=== PATIENT | female | born 1990 | race Two or more races ===

== ENCOUNTER 2020-07-13 23:27 | Emergency (ER) | payer OTHER ==
[2020-07-13 23:36] VITALS: BP 130/77; PULSE 87; TEMP 98.6; BMI 32.9
[2020-07-13] MEDS ORDERED: ACETAMINOPHEN 500 MG TABLET (FP) PO ONE (23:50)
[2020-07-13] MEDS ORDERED: ACETAMINOPHEN 325 MG TABLET (FP) ONE (23:55)
== END 2020-07-14 02:16 | disposition home or self-care (01) ==
LOC: JER 23:27
DX: R51.9 Headache, unspecified (principal); Z3A.32 32 weeks gestation of pregnancy
CPT/HCPCS: 71045-TC-FY; 99284-25; C9803; U0003

== ENCOUNTER 2020-07-21 02:05 | Emergency (ER) | payer OTHER ==
[2020-07-21 02:44] VITALS: BMI 32.9
[2020-07-21] MEDS ORDERED: ACETAMINOPHEN 325 MG TABLET (FP) PO ONE (03:18)
[2020-07-21] MEDS ORDERED: ACETAMINOPHEN 325 MG TABLET (FP) ONE (03:24)
[2020-07-21 04:41] LABS: BASO % 0.4 % (0-2.0); EOS % 1.8 % (0-4.5); HEMOGLOBIN 11.9 GM/dL (10.7-15.3); LYMPH % 15.5 % (8-40); MCH 31.3 pg (25.7-33.7); MEAN CELL VOLUME 91.8 fl (80-96); MEAN PLT VOLUME 7.8 fl (7.5-11.1); MONO % 10.1 % (3.8-10.2); NEUT % 72.2 % (42.8-82.8); PLATELET COUNT 229 K/MM3 (134-434); RBC 3.81 M/mm3 (3.60-5.2); RDW 14.2 % (11.6-15.6); WHITE BLOOD COUNT 9.2 K/mm3 (4.0-10.0)
[2020-07-21 05:01] LABS: POTASSIUM 4.4 mmol/L (3.5-5.1)
[2020-07-21 05:03] LABS: ALBUMIN 2.5 g/dl (3.4-5.0); BLOOD UREA NITROGEN 6.4 mg/dL (7-18); CALCIUM 8.5 mg/dL (8.5-10.1)
[2020-07-21 05:07] LABS: CREATININE 0.5 mg/dL (0.55-1.3)
[2020-07-21 05:08] LABS: BILIRUBIN,TOTAL 0.3 mg/dL (0.2-1)
[2020-07-21 10:51] VITALS: BP 133/83; PULSE 83; TEMP 98.5
[2020-07-21 11:21] LABS: EPI CELLS 29 /uL (0-25.1); HYALINE CASTS 1 /uL (0-3.1); URINE APPEARANCE CLEAR; URINE BACTERIA 1198 /uL (0-1359); URINE BILIRUBIN NEGATIVE (NEGATIVE); URINE COLOR YELLOW; URINE GLUCOSE (UA) NEGATIVE (NEGATIVE); URINE KETONE NEGATIVE (NEGATIVE); URINE LEUK ESTERASE TRACE (NEGATIVE); URINE NITRITE NEGATIVE (NEGATIVE); URINE PROTEIN NEGATIVE (NEGATIVE); URINE RBC 12 /uL (0-23.9); URINE UROBILINOGEN 0.2 mg/dL (0.2-1.0); URINE WBC 27 /uL (0-25.8)
== END 2020-07-21 12:15 | disposition home or self-care (01) ==
LOC: JER 02:05
DX: O12.03 Gestational edema, third trimester (principal); R05 Cough; J34.89 Other specified disorders of nose and nasal sinuses; Z3A.34 34 weeks gestation of pregnancy
CPT/HCPCS: 36415; 80053; 81003; 85025; 93971-TC; 99284-25

== ENCOUNTER 2020-08-08 16:05 | Inpatient (IN) | payer OTHER ==
[2020-08-08] MEDS ORDERED: ELECTROLYTE-148 SOLN 1,000 ML IV SCH ×2 (17:00→18:00)
[2020-08-08 20:10] LABS: RETICULOCYTES 2.45 % (0.5-1.5)
[2020-08-08 20:33] LABS: URIC ACID 5.4 mg/dL (2.6-7.2)
[2020-08-08 23:56] LABS: BASO % 0.4 % (0-2.0); EOS % 1.6 % (0-4.5); HEMATOCRIT 37.9 % (32.4-45.2); HEMOGLOBIN 12.9 GM/dL (10.7-15.3); LYMPH % 32.6 % (8-40); MCH 31.3 pg (25.7-33.7); MCHC 34.1 g/dl (32.0-36.0); MEAN CELL VOLUME 91.9 fl (80-96); MEAN PLT VOLUME 8.1 fl (7.5-11.1); MONO % 10.5 % (3.8-10.2); NEUT % 54.9 % (42.8-82.8); PLATELET COUNT 256 K/MM3 (134-434); RBC 4.12 M/mm3 (3.60-5.2); RDW 15.2 % (11.6-15.6); WHITE BLOOD COUNT 8.4 K/mm3 (4.0-10.0)
[2020-08-09 00:15] LABS: POTASSIUM 4.3 mmol/L (3.5-5.1)
[2020-08-09 00:16] LABS: CALCIUM 7.9 mg/dL (8.5-10.1)
[2020-08-09 00:17] LABS: BLOOD UREA NITROGEN 9.9 mg/dL (7-18)
[2020-08-09 00:20] LABS: CREATININE 0.6 mg/dL (0.55-1.3)
[2020-08-09 01:14] LABS: HIV INTERPRETATION NEGATIVE (NEGATIVE)
[2020-08-09 01:28] VITALS: BMI 36.1
[2020-08-09 01:45] LABS: INR 0.85 (0.83-1.09); PROTHROMBIN TIME (PATIENT) 10.5 SEC (9.7-13.0)
[2020-08-09 01:48] LABS: ACTIVATED PTT 26.1 SECONDS (25.2-36.5)
[2020-08-09] MEDS ORDERED: MAGNESIUM 4GM/H20 - 4 GM/100 ML IVPB IVPB ONE (02:32)
[2020-08-09] MEDS ORDERED: MAGNESIUM SULFATE 20GM/500ML - 20 GM/500 ML INFUS.BAG ONE ×2 (02:33→17:42)
[2020-08-09] MEDS ORDERED: MAGNESIUM 4GM/H20 - 4 GM/100 ML IVPB IVPB SCH (02:40)
[2020-08-09 08:57] LABS: BASO % 0.6 % (0-2.0); EOS % 1.1 % (0-4.5); HEMATOCRIT 39.1 % (32.4-45.2); HEMOGLOBIN 13.3 GM/dL (10.7-15.3); LYMPH % 28.1 % (8-40); MCH 31.5 pg (25.7-33.7); MCHC 33.9 g/dl (32.0-36.0); MEAN CELL VOLUME 92.7 fl (80-96); MEAN PLT VOLUME 8.1 fl (7.5-11.1); MONO % 9.6 % (3.8-10.2); NEUT % 60.6 % (42.8-82.8); PLATELET COUNT 254 K/MM3 (134-434); RBC 4.22 M/mm3 (3.60-5.2); RDW 15.2 % (11.6-15.6); WHITE BLOOD COUNT 7.4 K/mm3 (4.0-10.0)
[2020-08-09 09:07] LABS: INR 0.86 (0.83-1.09); PROTHROMBIN TIME (PATIENT) 10.5 SEC (9.7-13.0)
[2020-08-09] MEDS ORDERED: IBUPROFEN 600 MG TABLET (FP) PO PRN (09:56)
[2020-08-09] MEDS ORDERED: ONDANSETRON 4 MG/2 ML VIAL IVPUSH PRN (09:56)
[2020-08-09] MEDS ORDERED: OXYTOCIN 20 UNITS in 0.9% NS 20 UNIT/1,000 ML INFUS.BAG IV ONE ×2 (09:58→17:43)
[2020-08-09] MEDS ORDERED: CEFAZOLIN 2 GM/D5W 2 GM/50 ML ML IVPB ONE (09:58)
[2020-08-09] MEDS ORDERED: morphine SULFATE/Preservative Free 0.5 MG/ML (1cc Syringe) ONE (09:59)
[2020-08-09] MEDS ORDERED: PHENYLEPHRINE HCL 10 MG/1 ML SINGLE DOSE VIAL ONE (10:00)
[2020-08-09] MEDS ORDERED: CITRIC ACID/SODIUM CITRATE 30 ML UNIT-DOSE CUP PO ONE (10:00)
[2020-08-09] MEDS ORDERED: KETOROLAC TROMETHAMINE 30 MG/1 ML VIAL ONE (10:26)
[2020-08-09] MEDS ORDERED: OXYTOCIN 10 UNITS/ML VIAL ONE (10:26)
[2020-08-09] MEDS ORDERED: diphenhydrAMINE HCL 25 MG CAPSULE (FP) PO PRN (11:11)
[2020-08-09] MEDS ORDERED: BENZOCAINE 28 GM HEMORRHOIDAL OINTMENT PR PRN (11:11)
[2020-08-09] MEDS ORDERED: BENZOCAINE 20% 57 GM BOTTLE TP PRN (11:11)
[2020-08-09] MEDS ORDERED: WITCH HAZEL 50% (TUCKS) 40 PAD/JAR PAD TP PRN (11:11)
[2020-08-09] MEDS ORDERED: METHYLERGONOVINE MALEATE 0.2 MG/1 ML AMP IM PRN (11:11)
[2020-08-09] MEDS ORDERED: IBUPROFEN 800 MG/8 ML IJ IVPB PRN (11:11)
[2020-08-09] MEDS ORDERED: DEXTROSE 5%-LACTATED RINGERS 1,000 ML IV SCH (11:15)
[2020-08-09] MEDS ORDERED: OXYTOCIN 20 UNITS in 0.9% NS 20 UNIT/1,000 ML INFUS.BAG IV SCH (11:15)
[2020-08-09] MEDS ORDERED: MAGNESIUM SULFATE 20GM/500ML - 20 GM/500 ML INFUS.BAG IVPB SCH (11:45)
[2020-08-09 11:56] LABS: CORD BASE EXCESS -4.9 mmol/L (0-2); CORD HCO3 22.8 mmHg (20-29); CORD PCO2 51.5 mmHg (30-78); CORD pH 7.264 (7.14-7.44)
[2020-08-09 11:59] LABS: CORD HCO3 27.1 mmHg (20-29); CORD PCO2 68.6 mmHg (30-78); CORD pH 7.215 (7.14-7.44)
[2020-08-09] MEDS ORDERED: LABETALOL HCL 200 MG TABLET (FP) ONE ×2 (17:09→21:49)
[2020-08-09] MEDS ORDERED: LABETALOL HCL 200 MG TABLET (FP) PO ONE ×2 (17:30→17:45)
[2020-08-09] MEDS ORDERED: CEFAZOLIN 1 GM/D5W 50 ML IVPB SCH (18:00)
[2020-08-09] MEDS: LABETALOL HCL 200 MG TABLET (FP) PO SCH (21:52)
[2020-08-09] MEDS ORDERED: ACETAMINOPHEN 1000 MG/100 ML VIAL (NON FORMULARY) IVPB ONE (22:00)
[2020-08-09] MEDS ORDERED: ACETAMINOPHEN INJECTION 100 ML IVPB ONE (22:05)
[2020-08-10] MEDS ORDERED: OXYTOCIN 20 UNITS in 0.9% NS 20 UNIT/1,000 ML INFUS.BAG IV ONE (03:29)
[2020-08-10] MEDS: ELECTROLYTE-148 SOLN 500 ML IV SCH ×2 (04:50→04:51)
[2020-08-10] MEDS: ELECTROLYTE-148 SOLN 1,000 ML IV SCH (04:51)
[2020-08-10] MEDS: LABETALOL HCL 200 MG TABLET (FP) PO SCH ×3 (05:52→21:29)
[2020-08-10] MEDS: ACETAMINOPHEN 325 MG TABLET (FP) PO PRN ×3 (06:46→17:36)
[2020-08-10] MEDS: SIMETHICONE 80 MG TAB.CHEW (FP) PO PRN ×4 (06:47→21:29)
[2020-08-10] MEDS: oxyCODONE HCL 5 MG TABLET PO PRN ×3 (06:47→21:28)
[2020-08-10 08:28] LABS: BASO % 0.4 % (0-2.0); EOS % 0.5 % (0-4.5); HEMATOCRIT 37.6 % (32.4-45.2); HEMOGLOBIN 12.6 GM/dL (10.7-15.3); LYMPH % 15.9 % (8-40); MCH 31.5 pg (25.7-33.7); MCHC 33.6 g/dl (32.0-36.0); MEAN CELL VOLUME 93.6 fl (80-96); MEAN PLT VOLUME 8.1 fl (7.5-11.1); MONO % 8.5 % (3.8-10.2); NEUT % 74.7 % (42.8-82.8); PLATELET COUNT 229 K/MM3 (134-434); RBC 4.01 M/mm3 (3.60-5.2); RDW 15.3 % (11.6-15.6); WHITE BLOOD COUNT 9.6 K/mm3 (4.0-10.0)
[2020-08-10] MEDS: IBUPROFEN 600 MG TABLET (FP) PO PRN ×2 (10:47→17:36)
[2020-08-10] MEDS ORDERED: BISACODYL 10 MG SUPP.RECT PR PRN (11:11)
[2020-08-11] MEDS ORDERED: LABETALOL HCL 100 MG TABLET (FP) ONE (06:22)
[2020-08-11] MEDS: LABETALOL HCL 200 MG TABLET (FP) PO SCH ×3 (06:24→22:09)
[2020-08-11] MEDS: oxyCODONE HCL 5 MG TABLET PO PRN (06:29)
[2020-08-11] MEDS: SIMETHICONE 80 MG TAB.CHEW (FP) PO PRN ×2 (06:30→17:25)
[2020-08-11] MEDS: ACETAMINOPHEN 325 MG TABLET (FP) PO PRN ×2 (08:21→17:25)
[2020-08-11] MEDS: IBUPROFEN 600 MG TABLET (FP) PO PRN ×2 (08:22→17:25)
[2020-08-11] MEDS ORDERED: SENNOSIDES/DOCUSATE COMBO (SENNA PLUS) TABLET (UD) PO PRN (22:00)
[2020-08-12] MEDS: ACETAMINOPHEN 325 MG TABLET (FP) PO PRN ×2 (05:48→14:05)
[2020-08-12] MEDS: LABETALOL HCL 200 MG TABLET (FP) PO SCH ×2 (05:48→14:05)
[2020-08-12] MEDS: SIMETHICONE 80 MG TAB.CHEW (FP) PO PRN ×2 (05:49→14:05)
[2020-08-12 08:44] VITALS: TEMP 98.3
[2020-08-12 09:35] LABS: BASO % 0.2 % (0-2.0); EOS % 2.7 % (0-4.5); HEMATOCRIT 33.4 % (32.4-45.2); HEMOGLOBIN 11.4 GM/dL (10.7-15.3); MCHC 34.1 g/dl (32.0-36.0); MEAN CELL VOLUME 93.7 fl (80-96); MEAN PLT VOLUME 7.5 fl (7.5-11.1); MONO % 8.8 % (3.8-10.2); NEUT % 70.3 % (42.8-82.8); PLATELET COUNT 272 K/MM3 (134-434); RBC 3.56 M/mm3 (3.60-5.2); RDW 15.9 % (11.6-15.6); WHITE BLOOD COUNT 8.5 K/mm3 (4.0-10.0)
[2020-08-12] MEDS: IBUPROFEN 600 MG TABLET (FP) PO PRN (14:05)
[2020-08-12 14:12] VITALS: BP 142/82; PULSE 92
== END 2020-08-12 14:15 | disposition home or self-care (01) | DRG 540 ==
LOC: JDEL 16:05 → JLDR 23:25 → J3W 08-10 04:15
PROVIDERS: ADMIT Family Medicine; ATTEND Family Medicine
PROC: 10D00Z1 Extraction of Products of Conception, Low, Open Approach (ICD-10-PCS; principal; 2020-08-08)
DX: O14.94 Unspecified pre-eclampsia, complicating childbirth (principal); O36.8130 Decreased fetal movements, third trimester, not applicable or unspecified; O34.211 Maternal care for low transverse scar from previous cesarean delivery; Z3A.37 37 weeks gestation of pregnancy; Z37.0 Single live birth; Z88.0 Allergy status to penicillin
CPT/HCPCS: 36415; 36600; 76819-TC; 80048; 82803; 82977; 83010; 83735; 84450; 84460; 84550; 85025; 85032; 85045; 85610; 85730; 86780; 86850; 86900; 86901; 87389; 88307-TC; C9803; J0131; U0003

== ENCOUNTER 2020-08-14 19:02 | Emergency (ER) | payer OTHER ==
[2020-08-14 19:11] VITALS: BP 121/78; PULSE 78; BMI 37.8
[2020-08-14 19:24] VITALS: TEMP 98.6
== END 2020-08-14 19:36 | disposition home or self-care (01) ==
LOC: JERFT 19:02 → JER 19:02 → JERFT 19:36
DX: Z11.52 Encounter for screening for COVID-19 (principal)
CPT/HCPCS: 99283-25; C9803; U0003

== ENCOUNTER 2020-12-26 22:37 | Emergency (ER) | payer OTHER ==
[2020-12-26 22:51] VITALS: BP 127/86; PULSE 100; TEMP 98.1; BMI 35.3
[2020-12-26] MEDS ORDERED: morphine CARPU-JECT 2 MG/1 ML DISP.SYRIN IVPUSH ONE (23:26)
[2020-12-26] MEDS ORDERED: MORPHINE SULFATE 2 MG/ML VIAL ONE (23:38)
[2020-12-26 23:44] LABS: BASO % 0.4 % (0-2.0); EOS % 3.5 % (0-4.5); HEMATOCRIT 38.3 % (32.4-45.2); HEMOGLOBIN 13.1 GM/dL (10.7-15.3); LYMPH % 31.3 % (8-40); MCH 30.2 pg (25.7-33.7); MCHC 34.2 g/dl (32.0-36.0); MEAN CELL VOLUME 88.4 fl (80-96); MEAN PLT VOLUME 6.3 fl (7.5-11.1); MONO % 9.9 % (3.8-10.2); NEUT % 54.9 % (42.8-82.8); PLATELET COUNT 338 10^3/uL (134-434); RBC 4.33 M/mm3 (3.60-5.2); RDW 13.1 % (11.6-15.6); WHITE BLOOD COUNT 8.1 K/mm3 (4.0-10.0)
[2020-12-26] MEDS ORDERED: SODIUM CHLORIDE 0.9% 500 ML INFUS.BAG IV ONE (23:58)
[2020-12-27 00:03] LABS: URINE APPEARANCE CLEAR; URINE BILIRUBIN NEGATIVE (NEGATIVE); URINE COLOR YELLOW; URINE GLUCOSE (UA) NEGATIVE (NEGATIVE); URINE KETONE NEGATIVE (NEGATIVE); URINE LEUK ESTERASE NEGATIVE (NEGATIVE); URINE NITRITE NEGATIVE (NEGATIVE); URINE PROTEIN NEGATIVE (NEGATIVE); URINE UROBILINOGEN 0.2 mg/dL (0.2-1.0)
[2020-12-27 00:09] LABS: ALBUMIN 3.8 g/dl (3.4-5.0); CALCIUM 9.1 mg/dL (8.5-10.1)
[2020-12-27 00:10] LABS: BLOOD UREA NITROGEN 9.8 mg/dL (7-18)
[2020-12-27 00:13] LABS: CREATININE 0.8 mg/dL (0.55-1.3)
[2020-12-27 00:14] LABS: BILIRUBIN,TOTAL 0.3 mg/dL (0.2-1); TOT PROT 7.3 g/dl (6.4-8.2)
== END 2020-12-27 02:29 | disposition home or self-care (01) ==
LOC: JER 22:37
PROC: 3E033NZ Introduction of Analgesics, Hypnotics, Sedatives into Peripheral Vein, Percutaneous Approach (ICD-10-PCS; principal; 2020-12-26)
DX: R14.1 Gas pain (principal)
CPT/HCPCS: 36415; 74176-TC; 80053; 81003; 84703; 85025; 99284-25

== ENCOUNTER 2021-02-17 13:44 | Emergency (ER) | payer OTHER ==
[2021-02-17 14:12] VITALS: BMI 31.0
[2021-02-17 15:34] LABS: BASO % 0.5 % (0-2.0); EOS % 3.4 % (0-4.5); HEMATOCRIT 39.5 % (32.4-45.2); HEMOGLOBIN 13.4 GM/dL (10.7-15.3); LYMPH % 31.5 % (8-40); MCH 30.5 pg (25.7-33.7); MCHC 33.9 g/dl (32.0-36.0); MEAN PLT VOLUME 6.4 fl (7.5-11.1); MONO % 7.2 % (3.8-10.2); NEUT % 57.4 % (42.8-82.8); PLATELET COUNT 361 10^3/uL (134-434); RBC 4.39 M/mm3 (3.60-5.2); RDW 13.8 % (11.6-15.6); WHITE BLOOD COUNT 7.7 K/mm3 (4.0-10.0)
[2021-02-17 15:52] LABS: CHLORIDE 106 mmol/L (98-107); SODIUM 138 mmol/L (136-145)
[2021-02-17 15:54] LABS: ALBUMIN 3.9 g/dl (3.4-5.0); ANION GAP 6 MMOL/L (8-16); CALCIUM 8.7 mg/dL (8.5-10.1); CO2 26 mmol/L (21-32)
[2021-02-17 15:55] LABS: GLUCOSE,RANDOM 114 mg/dL (74-106)
[2021-02-17 15:57] LABS: CREATININE 0.7 mg/dL (0.55-1.3); SGOT/AST 12 U/L (15-37); SGPT/ALT 24 U/L (13-61)
[2021-02-17 15:59] LABS: BILIRUBIN,TOTAL 0.3 mg/dL (0.2-1); TOT PROT 7.6 g/dl (6.4-8.2)
[2021-02-17 16:00] LABS: ALK PHOS 74 U/L (45-117)
[2021-02-17 17:52] VITALS: BP 120/74; PULSE 72; TEMP 97.9
== END 2021-02-17 17:58 | disposition home or self-care (01) ==
LOC: JER 13:44
DX: N93.1 Pre-pubertal vaginal bleeding (principal)
CPT/HCPCS: 36415; 76830-TC; 80053; 84702; 85025; 99284-25

== ENCOUNTER 2022-07-28 22:17 | Emergency (ER) | payer OTHER ==
[2022-07-28 22:28] VITALS: BP 117/79; PULSE 88; RESP 19; TEMP 98.2; BMI 30.2
[2022-07-28] MEDS ORDERED: SODIUM CHLORIDE 0.9% 500 ML INFUS.BAG IV ONE (23:05)
[2022-07-28] MEDS ORDERED: METOCLOPRAMIDE HCL INJECTION 10 MG/2 ML VIAL IVPB ONE (23:05)
[2022-07-28] MEDS ORDERED: MECLIZINE HCL 25 MG TABLET (FP) PO ONE (23:05)
[2022-07-28] MEDS ORDERED: FAMOTIDINE 20 MG/50 ML IVPB 20 MG/50 ML MG IVPB ONE ×2 (23:09→23:42)
[2022-07-28] MEDS ORDERED: MECLIZINE HCL 25 MG TABLET (FP) ONE (23:42)
[2022-07-28] MEDS ORDERED: METOCLOPRAMIDE HCL INJECTION 10 MG/2 ML VIAL ONE (23:42)
[2022-07-29 00:22] LABS: BASO % 0.4 % (0-2.0); EOS % 8.1 % (0-4.5); HEMATOCRIT 40.1 % (32.4-45.2); HEMOGLOBIN 14.1 GM/dL (10.7-15.3); LYMPH % 29.6 % (8-40); MCH 32.9 pg (25.7-33.7); MCHC 35.1 g/dl (32.0-36.0); MEAN CELL VOLUME 93.8 fl (80-96); MEAN PLT VOLUME 6.3 fl (7.5-11.1); MONO % 10.6 % (3.8-10.2); NEUT % 51.3 % (42.8-82.8); PLATELET COUNT 323 10^3/uL (134-434); RBC 4.28 M/mm3 (3.60-5.2); RDW 12.5 % (11.6-15.6); WHITE BLOOD COUNT 6.4 K/mm3 (4.0-10.0)
[2022-07-29 00:31] LABS: EPI CELLS 24 /uL (0-25.1); HYALINE CASTS 1 /uL (0-3.1); PH,URINE 5.5 (5.0-8.0); URINE APPEARANCE CLEAR; URINE BACTERIA 657 /uL (0-1359); URINE BILIRUBIN NEGATIVE (NEGATIVE); URINE COLOR YELLOW; URINE GLUCOSE (UA) NEGATIVE (NEGATIVE); URINE KETONE NEGATIVE (NEGATIVE); URINE LEUK ESTERASE TRACE (NEGATIVE); URINE NITRITE NEGATIVE (NEGATIVE); URINE PROTEIN NEGATIVE (NEGATIVE); URINE RBC 18 /uL (0-23.9); URINE WBC 22 /uL (0-25.8)
[2022-07-29 00:43] LABS: CALCIUM 8.4 mg/dL (8.5-10.1)
[2022-07-29 00:44] LABS: ALBUMIN 3.7 g/dl (3.4-5.0); BLOOD UREA NITROGEN 7.3 mg/dL (7-18); MAGNESIUM 2.1 mg/dL (1.8-2.4)
[2022-07-29 00:47] LABS: CREATININE 0.7 mg/dL (0.55-1.3)
[2022-07-29 00:48] LABS: TOT PROT 7.2 g/dl (6.4-8.2)
[2022-07-29 00:49] LABS: BILIRUBIN,TOTAL 0.5 mg/dL (0.2-1)
== END 2022-07-29 04:00 | disposition home or self-care (01) ==
LOC: JER 22:17
PROC: 3E033GC Introduction of Other Therapeutic Substance into Peripheral Vein, Percutaneous Approach (ICD-10-PCS; principal; 2022-07-28)
DX: R42 Dizziness and giddiness (principal); R10.13 Epigastric pain
CPT/HCPCS: 0241U-QW; 36415; 71046-TC-FY; 76705-TC; 80053; 81003; 83690; 83735; 84484; 84703; 85025; 87086; 93005; 93010; 99285-25

== ENCOUNTER 2022-08-29 23:03 | Emergency (ER) | payer OTHER ==
[2022-08-29 23:08] VITALS: BP 124/80; PULSE 88; RESP 18; TEMP 97.4; BMI 36.9
[2022-08-29] MEDS ORDERED: LACTATED RINGERS SOLUTION 1000 ML INFUS.BAG IV ONE (23:41)
[2022-08-29] MEDS ORDERED: ACETAMINOPHEN 1000 MG/100 ML BAG IVPB ONE (23:41)
[2022-08-29] MEDS ORDERED: METOCLOPRAMIDE HCL INJECTION 10 MG/2 ML VIAL IVPUSH ONE (23:41)
[2022-08-29] MEDS ORDERED: ACETAMINOPHEN INJECTION 100 ML IVPB ONE (23:51)
[2022-08-29] MEDS ORDERED: METOCLOPRAMIDE HCL INJECTION 10 MG/2 ML VIAL ONE (23:51)
[2022-08-29] MEDS ORDERED: MECLIZINE HCL 25 MG TABLET (FP) PO ONE (23:54)
[2022-08-29] MEDS ORDERED: MECLIZINE HCL 25 MG TABLET (FP) ONE (23:55)
[2022-08-30 00:35] LABS: BASO % 0.4 % (0-2.0); EOS % 5.6 % (0-4.5); HEMOGLOBIN 13.7 GM/dL (10.7-15.3); LYMPH % 30.8 % (8-40); MCH 31.5 pg (25.7-33.7); MCHC 34.3 g/dl (32.0-36.0); MEAN PLT VOLUME 6.6 fl (7.5-11.1); MONO % 9.3 % (3.8-10.2); NEUT % 53.9 % (42.8-82.8); PLATELET COUNT 353 10^3/uL (134-434); RBC 4.34 M/mm3 (3.60-5.2); RDW 12.7 % (11.6-15.6); WHITE BLOOD COUNT 7.4 K/mm3 (4.0-10.0)
[2022-08-30 00:40] LABS: INR 1.11 (0.83-1.09); PROTHROMBIN TIME (PATIENT) 12.9 SEC (9.7-13.0)
[2022-08-30 00:54] LABS: BLOOD UREA NITROGEN 9.8 mg/dL (7-18); CALCIUM 9.4 mg/dL (8.5-10.1)
[2022-08-30 00:55] LABS: ALBUMIN 4.1 g/dl (3.4-5.0)
[2022-08-30 00:58] LABS: CREATININE 0.7 mg/dL (0.55-1.3)
[2022-08-30 00:59] LABS: BILIRUBIN,TOTAL 0.4 mg/dL (0.2-1); TOT PROT 7.7 g/dl (6.4-8.2)
[2022-08-30 02:00] LABS: MAGNESIUM 2.2 mg/dL (1.8-2.4)
== END 2022-08-30 02:26 | disposition home or self-care (01) ==
LOC: JER 23:03
PROC: 3E033NZ Introduction of Analgesics, Hypnotics, Sedatives into Peripheral Vein, Percutaneous Approach (ICD-10-PCS; principal; 2022-08-29)
PROC: 3E033GC Introduction of Other Therapeutic Substance into Peripheral Vein, Percutaneous Approach (ICD-10-PCS; 2022-08-29)
DX: R51.9 Headache, unspecified (principal); Z20.822 Contact with and (suspected) exposure to COVID-19
CPT/HCPCS: 0241U-QW; 36415; 70450-TC; 80053; 83690; 83735; 84703; 85025; 85610; 99284-25

== ENCOUNTER 2022-09-30 17:32 | Emergency (ER) | payer OTHER ==
[2022-09-30 17:44] VITALS: BP 126/74; PULSE 96; RESP 17; TEMP 98.1; BMI 34.0
[2022-09-30 20:06] LABS: HCG,QUALITATIVE URINE Negative
[2022-09-30 20:07] LABS: EPI CELLS 15 /uL (0-25.1); HYALINE CASTS 0 /uL (0-3.1); URINE APPEARANCE CLEAR; URINE BACTERIA 1023 /uL (0-1359); URINE BILIRUBIN NEGATIVE (NEGATIVE); URINE COLOR YELLOW; URINE GLUCOSE (UA) NEGATIVE (NEGATIVE); URINE KETONE NEGATIVE (NEGATIVE); URINE LEUK ESTERASE TRACE (NEGATIVE); URINE NITRITE NEGATIVE (NEGATIVE); URINE PROTEIN NEGATIVE (NEGATIVE); URINE RBC 14 /uL (0-23.9); URINE UROBILINOGEN 0.2 mg/dL (0.2-1.0); URINE WBC 8 /uL (0-25.8)
[2022-09-30] MEDS ORDERED: KETOROLAC TROMETHAMINE 15 MG/ML VIAL IM ONE (20:53)
[2022-09-30] MEDS ORDERED: KETOROLAC TROMETHAMINE 15 MG/ML VIAL ONE (21:01)
[2022-09-30] MEDS ORDERED: SULFAMETHOXAZOLE/TRIMETHOPRIM 800MG/160MG D.S. TABLET PO ONE (21:18)
[2022-09-30] MEDS ORDERED: LIDOCAINE 5% TOPICAL PATCH TP ONE (21:18)
[2022-09-30] MEDS ORDERED: ACETAMINOPHEN 500 MG TABLET (FP) PO ONE (21:18)
[2022-09-30] MEDS ORDERED: ACETAMINOPHEN 500 MG TABLET (FP) ONE (21:56)
[2022-09-30] MEDS ORDERED: SULFAMETHOXAZOLE/TRIMETHOPRIM 800MG/160MG D.S. TABLET ONE (21:56)
[2022-09-30] MEDS ORDERED: LIDOCAINE 5% TOPICAL PATCH ONE (21:56)
[2022-09-30] MEDS ORDERED: LIDOCAINE PATCH REMOVAL MC SCH (22:00)
== END 2022-09-30 22:02 | disposition home or self-care (01) ==
LOC: JERFT 17:32
PROC: 3E0233Z Introduction of Anti-inflammatory into Muscle, Percutaneous Approach (ICD-10-PCS; principal; 2022-09-30)
DX: M54.41 Lumbago with sciatica, right side (principal); M54.42 Lumbago with sciatica, left side; N39.0 Urinary tract infection, site not specified
CPT/HCPCS: 81003; 84703; 87086; 99284-25

== ENCOUNTER 2023-10-27 17:01 | Emergency (ER) | payer OTHER ==
[2023-10-27] MEDS ORDERED: ACETAMINOPHEN INJECTION 100 ML IVPB ONE ×2 (18:04→18:34)
[2023-10-27] MEDS ORDERED: ONDANSETRON 4 MG/2 ML VIAL ONE (18:04)
[2023-10-27] MEDS ORDERED: FAMOTIDINE 20 MG/50 ML IVPB 20 MG/50 ML MG IVPB ONE (18:05)
[2023-10-27] MEDS: ONDANSETRON 4 MG/2 ML VIAL IVPUSH ONE (18:09)
[2023-10-27] MEDS: FAMOTIDINE 20 MG/50 ML IVPB 20 MG/50 ML MG IVPB ONE (18:09)
[2023-10-27] MEDS: SODIUM CHLORIDE 1,000 ML IV STA (18:09)
[2023-10-27 18:14] VITALS: BP 122/71; PULSE 78; RESP 18; TEMP 98.7; BMI 33.8
[2023-10-27 18:14] LABS: BASO % 0.5 % (0-2.0); EOS % 2.1 % (0-4.5); HEMOGLOBIN 14.8 GM/dL (10.7-15.3); LYMPH % 33.4 % (8-40); MCH 32.5 pg (25.7-33.7); MCHC 34.4 g/dl (32.0-36.0); MEAN CELL VOLUME 94.6 fl (80-96); MEAN PLT VOLUME 6.4 fl (7.5-11.1); MONO % 6.5 % (3.8-10.2); NEUT % 57.5 % (42.8-82.8); PLATELET COUNT 345 10^3/uL (134-434); RBC 4.55 M/mm3 (3.60-5.2); RDW 12.7 % (11.6-15.6); WHITE BLOOD COUNT 9.3 K/mm3 (4.0-10.0)
[2023-10-27 18:17] LABS: EPI CELLS 29 /uL (0-25.1); HYALINE CASTS 0 /uL (0-3.1); URINE APPEARANCE CLEAR; URINE BACTERIA 176 /uL (0-1359); URINE BILIRUBIN NEGATIVE (NEGATIVE); URINE COLOR YELLOW; URINE GLUCOSE (UA) NEGATIVE (NEGATIVE); URINE KETONE NEGATIVE (NEGATIVE); URINE LEUK ESTERASE 2+ (NEGATIVE); URINE NITRITE NEGATIVE (NEGATIVE); URINE PROTEIN NEGATIVE (NEGATIVE); URINE RBC 11 /uL (0-23.9); URINE UROBILINOGEN 0.2 mg/dL (0.2-1.0); URINE WBC 53 /uL (0-25.8)
[2023-10-27] MEDS: ACETAMINOPHEN 1000 MG/100 ML BAG IVPB ONE (18:37)
[2023-10-27 18:50] LABS: POTASSIUM 4.3 mmol/L (3.5-5.1)
[2023-10-27 18:52] LABS: CALCIUM 9.2 mg/dL (8.5-10.1)
[2023-10-27 18:53] LABS: ALBUMIN 4.3 g/dl (3.4-5.0)
[2023-10-27 18:56] LABS: CREATININE 0.7 mg/dL (0.55-1.3)
[2023-10-27 18:57] LABS: BILIRUBIN,TOTAL 0.6 mg/dL (0.2-1)
== END 2023-10-27 19:00 | disposition home or self-care (01) ==
LOC: JER 17:01
PROC: 3E033GC Introduction of Other Therapeutic Substance into Peripheral Vein, Percutaneous Approach (ICD-10-PCS; principal; 2023-10-27)
PROC: 3E033NZ Introduction of Analgesics, Hypnotics, Sedatives into Peripheral Vein, Percutaneous Approach (ICD-10-PCS; 2023-10-27)
PROC: 3E033GC Introduction of Other Therapeutic Substance into Peripheral Vein, Percutaneous Approach (ICD-10-PCS; 2023-10-27)
DX: K52.9 Noninfective gastroenteritis and colitis, unspecified (principal); R11.2 Nausea with vomiting, unspecified; R10.10 Upper abdominal pain, unspecified; M54.9 Dorsalgia, unspecified; Z20.822 Contact with and (suspected) exposure to COVID-19
CPT/HCPCS: 0241U-QW; 36415; 80053; 81003; 83690; 84703; 85025; 87086; 99284-25; J0131

== ENCOUNTER 2023-12-19 23:07 | Emergency (ER) | payer OTHER ==
[2023-12-19 23:12] VITALS: PULSE 93; RESP 20; TEMP 98; BMI 35.9
[2023-12-20] MEDS ORDERED: ONDANSETRON 4 MG/2 ML VIAL ONE (01:04)
[2023-12-20] MEDS ORDERED: ACETAMINOPHEN 500 MG TABLET (FP) ONE (01:05)
[2023-12-20] MEDS: ACETAMINOPHEN 500 MG TABLET (FP) PO ONE (01:15)
[2023-12-20] MEDS: ONDANSETRON 4 MG/2 ML VIAL IVPUSH ONE (01:15)
[2023-12-20 01:20] VITALS: BP 109/74
[2023-12-20 01:22] LABS: BASO % 0.2 % (0-2.0); EOS % 3.8 % (0-4.5); HEMATOCRIT 42.6 % (32.4-45.2); HEMOGLOBIN 14.7 GM/dL (10.7-15.3); LYMPH % 23.5 % (8-40); MCH 32.3 pg (25.7-33.7); MCHC 34.5 g/dl (32.0-36.0); MEAN CELL VOLUME 93.7 fl (80-96); MEAN PLT VOLUME 6.2 fl (7.5-11.1); MONO % 8.4 % (3.8-10.2); NEUT % 64.1 % (42.8-82.8); PLATELET COUNT 390 10^3/uL (134-434); RBC 4.55 M/mm3 (3.60-5.2); RDW 12.6 % (11.6-15.6); WHITE BLOOD COUNT 10.7 K/mm3 (4.0-10.0)
[2023-12-20] MEDS ORDERED: morphine SULFATE 4 MG/ML VIAL ONE (01:39)
[2023-12-20] MEDS: morphine CARPU-JECT 4 MG/1 ML DISP.SYRIN IVPUSH ONE (01:45)
[2023-12-20 01:47] LABS: POTASSIUM 4.5 mmol/L (3.5-5.1)
[2023-12-20] MEDS: SODIUM CHLORIDE 0.9% 500 ML INFUS.BAG IV ONE (01:47)
[2023-12-20 01:50] LABS: ALBUMIN 4.1 g/dl (3.4-5.0); CALCIUM 9.3 mg/dL (8.5-10.1)
[2023-12-20 01:51] LABS: BLOOD UREA NITROGEN 9.8 mg/dL (7-18)
[2023-12-20 01:53] LABS: CREATININE 0.8 mg/dL (0.55-1.3)
[2023-12-20 01:55] LABS: BILIRUBIN,TOTAL 0.5 mg/dL (0.2-1); TOT PROT 7.8 g/dl (6.4-8.2)
[2023-12-20 03:15] LABS: BASO % 0.5 % (0-2.0); EOS % 3.8 % (0-4.5); HEMATOCRIT 37.6 % (32.4-45.2); HEMOGLOBIN 12.6 GM/dL (10.7-15.3); LYMPH % 28.2 % (8-40); MCH 31.6 pg (25.7-33.7); MCHC 33.6 g/dl (32.0-36.0); MEAN PLT VOLUME 6.1 fl (7.5-11.1); MONO % 8.5 % (3.8-10.2); PLATELET COUNT 352 10^3/uL (134-434); RDW 12.7 % (11.6-15.6); WHITE BLOOD COUNT 9.7 K/mm3 (4.0-10.0)
== END 2023-12-20 03:50 | disposition home or self-care (01) ==
LOC: JER 23:07
PROC: 3E033NZ Introduction of Analgesics, Hypnotics, Sedatives into Peripheral Vein, Percutaneous Approach (ICD-10-PCS; principal; 2023-12-20)
PROC: 3E033GC Introduction of Other Therapeutic Substance into Peripheral Vein, Percutaneous Approach (ICD-10-PCS; 2023-12-20)
DX: R10.11 Right upper quadrant pain (principal); R11.0 Nausea
CPT/HCPCS: 36415; 76705-TC; 80053; 83690; 84703; 85025; 99284-25

== ENCOUNTER 2025-01-06 17:15 | Emergency (ER) | payer OTHER ==
[2025-01-06 17:22] VITALS: BP 120/67; PULSE 82; RESP 18; TEMP 98.3; BMI 34.9
[2025-01-06] MEDS ORDERED: KETOROLAC TROMETHAMINE 30 MG/1 ML VIAL ONE ×2 (18:58→18:59)
[2025-01-06] MEDS ORDERED: ACETAMINOPHEN 500 MG TABLET (FP) ONE (18:58)
[2025-01-06] MEDS ORDERED: LIDOCAINE 4% PATCH TP ONE (18:58)
[2025-01-06] MEDS: LIDOCAINE 4% PATCH TP ONE (19:03)
[2025-01-06] MEDS: KETOROLAC TROMETHAMINE 30 MG/1 ML VIAL IM ONE (19:04)
[2025-01-06] MEDS: ACETAMINOPHEN 500 MG TABLET (FP) PO ONE (19:04)
[2025-01-06] MEDS ORDERED: LIDOCAINE PATCH REMOVAL MC SCH (22:00)
== END 2025-01-06 19:10 | disposition home or self-care (01) ==
LOC: JERFT 17:15 → JER 17:15 → JERFT 19:10
PROC: 3E0233Z Introduction of Anti-inflammatory into Muscle, Percutaneous Approach (ICD-10-PCS; principal; 2025-01-06)
DX: M54.50 Low back pain, unspecified (principal); X50.1XXA Overexertion from prolonged static or awkward postures, initial encounter
CPT/HCPCS: 84703; 99284-25